=== PATIENT | female | born 2000 | race Two or more races ===

== ENCOUNTER 2018-01-05 01:40 | Outpatient (CLI) | payer OTHER | END 2018-01-05 09:49 | disposition home or self-care (01) | LOC: OBS/DEL 01:40 | DX: O60.03 Preterm labor without delivery, third trimester (principal); Z34.03 Encounter for supervision of normal first pregnancy, third trimester ==

== ENCOUNTER 2018-02-16 19:41 | Inpatient (IN) | payer OTHER ==
[2018-02-17] MEDS ORDERED: PRENATAL TABLE1 EAC1 PO (18:16)
== END 2018-02-18 10:06 | disposition home or self-care (01) | DRG 951 ==
LOC: OBS/DEL 19:41 → LDR 02-17 17:02
PROC: 4A1HXCZ Monitoring of Products of Conception, Cardiac Rate, External Approach (ICD-10-PCS; principal; 2018-02-17)
DX: Z34.03 Encounter for supervision of normal first pregnancy, third trimester (principal); K52.89 Other specified noninfective gastroenteritis and colitis; E86.0 Dehydration

== ENCOUNTER 2018-03-11 16:06 | Inpatient (IN) | payer OTHER ==
[~2018-03-11] VITALS: Ht 162.6 cm; Wt 67.6 kg
[~2018-03-11 16:06] MED LIST: PRENATAL TABLE1 EAC1 PO
== END 2018-04-16 13:43 | disposition home or self-care (01) | DRG 775 ==
LOC: LDR 04-08 16:00 → OB/GYN 04-14 13:04
PROC: 10E0XZZ Delivery of Products of Conception, External Approach (ICD-10-PCS; principal; 2018-04-14)
PROC: 10907ZC Drainage of Amniotic Fluid, Therapeutic from Products of Conception, Via Natural or Artificial Opening (ICD-10-PCS; 2018-04-14)
PROC: 3E0P7VZ Introduction of Hormone into Female Reproductive, Via Natural or Artificial Opening (ICD-10-PCS; 2018-04-14)
PROC: 3E033VJ Introduction of Other Hormone into Peripheral Vein, Percutaneous Approach (ICD-10-PCS; 2018-04-14)
PROC: 4A033R1 Measurement of Arterial Saturation, Peripheral, Percutaneous Approach (ICD-10-PCS; 2018-04-14)
PROC: 4A1HXCZ Monitoring of Products of Conception, Cardiac Rate, External Approach (ICD-10-PCS; 2018-04-14)
DX: O99.824 Streptococcus B carrier state complicating childbirth (principal); Z3A.40 40 weeks gestation of pregnancy; Z37.0 Single live birth